=== PATIENT | female | born 1970 | race Two or more races ===

== ENCOUNTER 2024-08-11 10:09 | Emergency (ER) | payer BC, OTHER, SELFPAY ==
[2024-08-11 10:09] VITALS: BMI 32.9
[2024-08-11 10:15] VITALS: BP 128/85; PULSE 100; RESP 19; TEMP 37.3; O2SAT 99
--- NOTE | 2024-08-11 10:30 | XR_ITS ---
Examination: CT abdomen and pelvis without contrast. Coronal 3-D reconstructions. Sagittal 2-D reconstructions. Date and time of exam:August 11, 2024 1338 hrs. Indications: Nausea vomiting fever today Comparison: April 20, 2022, history kidney stones CTDI: vol (mGy): 9.01 DLP: (mGycm): 445 Technique: Axial images of the abdomen have been obtained, 3 mm slice thickness Intravenous contrast material has not been administered. Low dose protocols were performed. One or more of the following dose reduction techniques were used; automated exposure control, adjustment of the mA and/or KV according to patient size, use of iterative reconstruction technique. Findings: No focal liver or splenic lesion No gallstones No pancreatic or adrenal mass Multiple right renal calculi Mild right hydronephrosis secondary to 16mm right ureterovesical junction calculus Aorta normal size No bowel obstruction No pericecal inflammatory change No pelvic mass No bladder mass or bladder calculi Impression: Mild right hydronephrosis secondary to 16mm right ureterovesical junction calculus
--- NOTE | 2024-08-11 10:31 | PD.EDRME ---
Rapid Medical Screening Exam RME Arrival date/time: 08/11/24 10:09 Chief Complaint: Abdominal Pain Time Seen by Provider: 08/11/24 10:19 Vital signs: Vital Signs Temperature 99.1 F 08/11/24 10:15 Pulse Rate 100 08/11/24 10:15 Respiratory Rate 19 08/11/24 10:15 Blood Pressure 128/85 H 08/11/24 10:15 Pulse Oximetry (%) 99 08/11/24 10:15 Oxygen Delivery Method Room Air 08/11/24 10:15 RME Narrative: Right flank pain, N/V x 2 days worsening this morning. No fever or urinary symptoms reported.
[2024-08-11 10:51] LABS: Basophils % (Auto) 0 % (0-2.5); Eosinophils % (Auto) 0 % (0-10); Hematocrit 36.5 % (36.0-46.0); Hemoglobin 12.4 g/dL (12.0-16.0); Immature Granulocytes % (Auto) 0 % (0-0); Immature Granulocytes Auto 0.07 Thou/mm3 (0.00-0.00); Lymphocytes # (Auto) 0.8 Thou/mm3 (1.0-4.8); Lymphocytes % (Auto) 5 % (10-50); Mean Corpuscular Hemoglobin 30.4 pg (25.0-35.0); Mean Corpuscular Volume 90 fL (80-100); Monocytes # (Auto) 0.4 Thou/mm3 (0.0-0.8); Monocytes % (Auto) 2 % (0-12); Neutrophils # (Auto) 16.2 Thou/mm3 (1.8-7.7); Neutrophils % (Auto) 93 % (37-80); Nucleated Red Blood Cell % 0 /100 WBC (0); Platelet Count 238 Thou/mm3 (140-440); RDW Standard Deviation 44.7 fL (36.4-46.3); Red Blood Count 4.08 Miln/mm3 (4.00-5.20); White Blood Count 17.5 Thou/mm3 (3.6-11.0)
[2024-08-11 11:13] LABS: Alanine Aminotransferase 20 U/L (10-49); Albumin, Serum 4.9 gm/dL (3.5-5.0); Alkaline Phosphatase 88 U/L (46-116); Anion Gap 6 (7-16); Aspartate Amino Transferase 19 U/L (0-34); BUN/Creatinine Ratio 16 Ratio (12-20); Bilirubin,Total 2.7 mg/dL (0.3-1.2); Blood Urea Nitrogen 24 mg/dL (9-23); Calcium 9.8 mg/dL (8.3-10.6); Calcium (Corrected) 9.8 mg/dL (8.5-10.1); Carbon Dioxide 26.6 mMol/L (20.0-31.0); Chloride 99 mMol/L (98-107); Creatinine (Component) 1.5 mg/dL (0.6-1.3); Estimated Creatinine Clearance 43.4 mL/min (>60); Globulin 2.5 gm/dL (2.3-3.5); Glucose 147 mg/dL (74-106); Lipase 29 U/L (12-53); Osmolality,Calculated 271 (275-295); Potassium 3.9 mMol/L (3.4-5.1); Sodium 132 mMol/L (136-145); Total Protein 7.4 gm/dL (5.7-8.2); eGFR 42 See Note
--- NOTE | 2024-08-11 11:16 | PD.EDABDPN ---
ED Abdominal Pain RME/HPI General Chief Complaint: Abdominal Pain Stated complaint: RIGHT FLANK PAIN SINCE LAST NIGHT Time seen by provider: 08/11/24 10:19 Arrival date/time: 08/11/24 10:09 RME / HPI RME / HPI narrative: 54-year-old female patient with no significant past medical history except for history of kidney stone in the past, came in for evaluation regarding right flank pain. Onset of symptoms since last night as sudden onset of right flank pain, described as crampy, severity 8 out of 10 associated with vomiting. Patient feels hot also. Denies any diarrhea denies any constipation denies any hematuria frequency or other complaints. No medication was taken prior to arrival. Patient was noted to have temperature of 102, sepsis alert was initiated right away. Related Data Previous Rx's ?Medication ?Instructions ?Recorded hydrocodone 5 mg-acetaminophen 325 1 tab PO BID PRN pain #10 tabs 04/20/22 mg tablet oxycodone 5 mg capsule 5 mg PO Q4H PRN pain #18 caps 04/20/22 promethazine 25 mg tablet 25 mg PO Q6H PRN nausea and 04/20/22 vomiting #14 tabs tamsulosin 0.4 mg capsule (Flomax) 0.4 mg PO QDAY #30 caps 04/20/22 Allergies Allergy/AdvReac Type Severity Reaction Status Date / Time No Known Allergies Allergy Verified 08/11/24 10:10 Review of Systems Review of Systems Narrative Review of Systems: Review of system reviewed and within normal limits except mentioned in HPI ED Exam Narrative Physical exam: VITAL SIGNS: Reviewed. GENERAL APPEARANCE: Alert and interactive, follows commands, no acute distress, HEAD AND FACE: Non-traumatic. ENT: PERRL, pink conjunctivitis, eyelid no trauma, Mucous membrane moist. NECK: Supple, nontender, no nuchal rigidity. CHEST: No tenderness, no crepitus, no paradoxical movement, no retractions. LUNGS: Clear, well ventilated, symmetric, no rales, no wheezing, no ronchi, no stridor, good breath sounds bilaterally. HEART: Regular rate, regular rhythm, no murmur, no gallops. ABDOMEN: Soft, positive bowel sounds, nondistended, no guarding, nontender, no rebound, no masses,+ right flank tenderness RECTAL: Deferred. GENITAL: Deferred. NEUROLOGICAL: Gross motor function intact sensory function intact, Appropriate for age. MUSCULOSKELETAL: low back nontender, full range of motion. EXTREMITIES: Nontender, full range of motion. SKIN: Color pink, dry, no rash, no lacerations, no abrasions, no contusions. LYMPHATICS: Deferred. Course Quality Measures none Orders Category Date Time Status Referral - Marine Technician Stat Cons 08/11/24 14:[address] abdomen pelvis wo con Stat Exams 08/11/24 10:30 Completed Blood Culture (Lab) Stat Lab 08/11/24 11:40 Received CBC Stat Lab 08/11/24 10:44 Completed CMP [Comprehensive Metabolic Panel] Stat Lab 08/11/24 10:44 Completed Lactate (Lactic Acid) Stat Lab 08/11/24 11:32 Completed Lactic Acid, 3 HR Stat Lab 08/11/24 15:10 Completed Lipase Stat Lab 08/11/24 10:44 Completed Procalcitonin Stat Lab 08/11/24 10:44 Completed UA [Urinalysis] Stat Lab 08/11/24 10:50 Completed Acetaminophen Tab [Tylenol ES Tab] Med 08/11/24 11:24 Discontinued 1,000 mg PO X1 ONE Ketorolac Inj [Toradol Inj] Med 08/11/24 10:30 Discontinued 30 mg IM X1 ONE Ondansetron Odt [Zofran Odt] Med 08/11/24 10:30 Discontinued 4 mg PO X1 ONE Piper/Tazo 3.375 gm [Zosyn] Med 08/11/24 14:33 Discontinued 3.375 gm in 50 ml IV X1 Sodium Chloride 0.9% 1000 ml [Ns] 1,000 ml Med 08/11/24 11:23 Discontinued IV 999 mls/hr cefTRIAXone/D5w 1gm IV premix [Rocephin/D5w 1gm IV Med 08/11/24 11:38 Discontinued premix] 50 ml IV X1 Vital Signs Vital signs: Vital Signs Temperature 99.1 F 08/11/24 10:15 Pulse Rate 100 08/11/24 10:15 Respiratory Rate 19 08/11/24 10:15 Blood Pressure 128/85 H 08/11/24 10:15 Pulse Oximetry (%) 99 08/11/24 10:15 Oxygen Delivery Method Room Air 08/11/24 10:15 Abdominal Pain MDM MDM Narrative MDM Narrative:: 54-year-old female patient with no significant past medical history except for history of kidney stone in the past, came in for evaluation regarding right flank pain. Onset of symptoms since last night as sudden onset of right flank pain, described as crampy, severity 8 out of 10 associated with vomiting. Patient feels hot also. Denies any diarrhea denies any constipation denies any hematuria frequency or other complaints. No medication was taken prior to arrival. Patient was noted to have temperature of 102, sepsis alert was initiated right away. Sepsis alert was initiated at 1135. Patient received Tylenol, ceftriaxone IV, IV fluids for hydration Patient received IV Zosyn also. Laboratory workup is significant for leukocytosis of 17.5 neutrophils of 16.2 sodium 132 anion gap of 6 creatinine 1.5 BUN of 24 total bili was also noted to be 2.7 Pro-Ashkan 4.82. Urinalysis no UTI CT scan of the abdomen and pelvis showed Mild right hydronephrosis secondary to 16mm right ureterovesical junction calculus Patient is to be transferred for urology due to 16 mm stone at the right ureterovesicular junction, right flank pain, and sepsis I am thinking patient is having acute pyelonephritis despite normal urinalysis. Patient was accepted to [facility] in [place], accepting neurologist Dr. Lanre Kellogg Plan of care discussed with the patient and accepted the transfer. Patient data External records reviewed:: None Clinical information provided by:: patient Social determinants that could affect healthcare access:: none Patient has the following chronic illnesses:: None How is presenting disease/condition affected by chronic disease/condition?: no chronic disease Evaluation data The following diagnostics were reviewed and interpreted by me:: lab results and radiology exam(s) Lab and/or radiology exams considered but not ordered:: None Interpretation Summary: Laboratory workup is significant for leukocytosis of 17.5 neutrophils of 16.2 sodium 132 anion gap of 6 creatinine 1.5 BUN of 24 total bili was also noted to be 2.7 Pro-Ashkan 4.82. Urinalysis no UTI CT scan of the abdomen and pelvis showed Mild right hydronephrosis secondary to 16mm right ureterovesical junction calculus Medications / Prescriptions Medications or Prescriptions considered but not ordered:: None Medication administrations:: Medication Administration History Discontinued Medications Acetaminophen (Acetaminophen 500 Mg Tablet) 1,000 mg PO X1 ONE Stop: 08/11/24 11:25 Last Admin: 08/11/24 11:40 Dose: 1,000 mg Documented By: PATEL Sodium Chloride (Ns) 1,000 mls @ 999 mls/hr IV .Q1H1M ONE Stop: 08/11/24 12:23 Last Infusion: 08/11/24 13:43 Dose: Infused Documented By: Admin: 08/11/24 11:40 Dose: 999 mls/hr Documented By: PATEL Ceftriaxone Sodium/Dextrose (Rocephin/D5w 1gm Iv Premix) 50 mls @ 100 mls/hr IV X1 ONE Stop: 08/11/24 12:07 Last Infusion: 08/11/24 13:42 Dose: Infused Documented By: Admin: 08/11/24 11:44 Dose: 100 mls/hr Documented By: PATEL Piperacillin/Tazobactam/Dextrose (Zosyn) 3.375 gm in 50 mls @ 100 mls/hr IV X1 ONE Stop: 08/11/24 15:02 Ketorolac Tromethamine (Ketorolac Inj 60 Mg/2 Ml Vial) 30 mg IM X1 ONE Stop: 08/11/24 10:31 Last Admin: 08/11/24 11:24 Dose: 30 mg Documented By: PATEL Ondansetron HCl (Ondansetron Odt 4 Mg Tabrap) 4 mg PO X1 ONE; Protocol Stop: 08/11/24 10:31 Last Admin: 08/11/24 11:24 Dose: 4 mg Documented By: PATEL Patient received ceftriaxone IV, IV fluids for hydration, Toradol, Zofran, and Tylenol patient was also given IV Zosyn Consultations Consultation(s) initiated? (list below): Yes Diagnosis Differential diagnosis abdominal pain: calculus of kidney and other (Acute pyelonephritis, sepsis, ureterolithiasis) Most likely diagnosis given after review of the tests above:: sepsis, ureterolithiasis Admission Indicated Admission indicated?: indicated Explain why admission is indicated or not indicated:: Patient transferred to higher level care Admission Request Was there a request for admission?: No Disposition Plan Disposition Plan: Transfer Discharge Plan Plan Patient Disposition: [facility] Facility Pt Being Transferred to: [facility] Service Needed for Transfer: Urology Prescriptions/Referrals Prescriptions/Med Rec: No Action oxycodone 5 mg capsule 5 mg PO Q4H MDD 6 PRN (Reason: pain) Qty: 18 0RF tamsulosin [Flomax] 0.4 mg capsule 0.4 mg PO QDAY Qty: 30 0RF promethazine 25 mg tablet 25 mg PO Q6H PRN (Reason: nausea and vomiting) Qty: 14 0RF hydrocodone-acetaminophen 5-325 mg tablet 1 tab PO BID MDD 10 PRN (Reason: pain) Qty: 10 0RF Referrals: Baldomero Ramirez [Primary Care Provider] - In 1 week Problem List Clinical Impression: Sepsis, Ureterolithiasis Patient/Caregiver Discharge Instructions Print Language: Faroese Stand Alone Forms: [facility] Award Info., Patient Portal Info Letter
[2024-08-11] MEDS: KETOROLAC INJ 60 MG/2 ML VIAL 30 MG IM (11:24)
[2024-08-11] MEDS: ONDANSETRON ODT 4 MG TABRAP PO (11:24)
[2024-08-11 11:31] VITALS: BP 130/77; PULSE 97; RESP 18; TEMP 38.9; O2SAT 96
[2024-08-11 11:40] VITALS: TEMP 38.8
[2024-08-11] MEDS: SODIUM CHLORIDE 0.9% 1000 ML 1,000 ML 999 ML IV (11:40)
[2024-08-11] MEDS: ACETAMINOPHEN 500 MG TABLET 1000 MG PO (11:40)
[2024-08-11] MEDS: cefTRIAXone/D5w 1gm IV premix 50 ML IV (11:44)
[2024-08-11 12:02] LABS: Lactate (Lactic Acid) 2.7 mMol/L (0.4-2.0)
[2024-08-11 12:06] LABS: Collection Type, Urine Clean Catch
[2024-08-11 12:24] LABS: Bilirubin,Urine Negative (Negative); Blood,Urine 1+ (Negative); Clarity,Urine Clear (Clear/Hazy); Color,Urine Lt-Yellow (Lt Yel-Yel); Glucose, Urine Negative (Negative); Ketones,Urine Negative (Negative); Leukocyte Esterase,Urine Negative (Negative); Nitrite,Urine Negative (Negative); Protein,Urine Negative (Neg - Trace); RBC,Urine 5 /hpf (0-3); Specific Gravity,Urine 1.023 (1.001-1.035); Squamous Epithelial Cell,Urine 4 /hpf (0-5); Uric Acid Crystals,Urine 1+; Urobilinogen,Urine Negative mg/dL (0.0-1.0); WBC,Urine 3 /hpf (0-5)
[2024-08-11 12:44] LABS: Procalcitonin 4.82 ng/ml (0.0-0.49)
--- NOTE | 2024-08-11 14:43 | PC.CM ---
Addendum entered by Albert Nicole RN 08/11/24 15:53: 1553 called [facility], spoke to Summer and informed miner pick time is 1800. Addendum entered by Albert Nicole RN 08/11/24 15:46: 1545 sent paperwork to [facility] through [employer]. Called JORDAN, spoke to [facility] and setup the transport. 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 1538 transfer packet is complete with CD inside including all signatures. Transfer packet kept with pt chart, notified charge nurse and number to call for report is on tracker. Addendum entered by Albert Nicole RN 08/11/24 15:12: 1511 received call from Sandra at [facility]. Pt is accepted for ED to ED transfer. Accepted by Dr. Lanre Duong. Report can be called at [phone]. Addendum entered by Albert Nicole RN 08/11/24 14:55: 1455 Called [facility], spoke to [facility] and initiated the transfer request. She wants to speak to Shalonda. Conference call connected. Original Note: 1453 Called [facility], spoke to Nirali to initiate the transfer request. Transfer request is declined due to no urology services available today. 1443 clinicals sent to [facility] and [facility]. 1431 received call from Shalonda MIRANDA that pt needs to be transferred for 16mm right ureterovesical junction calculus needs urology services.
[2024-08-11 14:47] VITALS: BP 107/59; PULSE 110; RESP 18; TEMP 37.1; O2SAT 96
[2024-08-11 14:59] LABS: Reflex Lactate? Y
[2024-08-11 15:28] LABS: Lactic Acid, 3 HR 3.1 mMol/L (0.4-2.0)
[2024-08-11] MEDS: PIPER/TAZO 3.375 GM 3.375 GM/50 ML BAG IV (15:36)
[2024-08-11 16:23] VITALS: BP 100/58; PULSE 107; RESP 18; TEMP 37.1; O2SAT 100
--- NOTE | 2024-08-11 17:14 | PC.NURSE ---
Report given to Racehll BOURNE at [facility] for patient transfer with ETA of 1.5hrs.
== END 2024-08-11 17:00 | disposition short-term general hospital (02) ==
PROVIDERS: Nurse Practitioner Family; Physician Assistant; Emergency Provider Emergency Medicine; PCP Physician Assistant
DX: A41.9 Sepsis, unspecified organism (principal); N13.2 Hydronephrosis with renal and ureteral calculous obstruction; Z75.1 Person awaiting admission to adequate facility elsewhere
CPT/HCPCS: 36415; 74176; 80053; 81001; 83605; 83690; 84145; 85025; 87040; 87077; 87186; 96361; 96365; 96372; 99284; J0696; J1885; J2543; J7030; Q0162; A9270

== ENCOUNTER → 2024-08-30 | Outpatient (CLI) | payer BC, OTHER, SELFPAY ==
--- NOTE | 2024-08-30 13:22 | XR_ITS ---
Examination: Abdomen AP single view Technique: AP portable supine abdomen, single view Exam date and time: August 30, 2024 1329 hours INDICATIONS: History right kidney stone, 60 mm right ureterovesical junction calculus on CT stone study August 11, 2024 FINDINGS: Right ureteral stent satisfactory position Faint 14 mm calcific density adjacent to the distal portion of the ureteral stent IMPRESSION: 14 mm distal ureteral calculus
== END | disposition home or self-care (01) ==
LOC: CDIM 12:45
PROVIDERS: PCP Physician Assistant; Referring Provider Surgery; Visit Provider Surgery
DX: N20.1 Calculus of ureter (principal)
CPT/HCPCS: 74018

== ENCOUNTER 2024-09-07 10:00 | Day surgery (SDC) | payer BC, OTHER, SELFPAY ==
--- NOTE | 2024-09-06 11:34 | EKG_ITS ---
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
[2024-09-06 11:45] VITALS: BMI 31.1
[2024-09-06 12:09] LABS: Collection Type, Urine Clean Catch
--- NOTE | 2024-09-06 12:47 | ESHP_ITS ---
RE: CEZAR PINON : 1970 DATE OF ADMISSION: 09/07/2024 HISTORY OF PRESENT ILLNESS: The patient is a 54-year-old female with a history of right-sided kidney stone. She had a right ureteral stent placed in [place]. She still has a stone. She is now scheduled to have an ESWL for right renal and ureteral stone. The patient had a history of stones in the past. PAST SURGICAL HISTORY: Included cyst removed from pancreas at [facility]. She has a right kidney stone surgery before and had abdominoplasty. SOCIAL HISTORY: She has four children. ALLERGIES: NONE KNOWN. PAST MEDICAL HISTORY: She has no history of diabetes mellitus. She has history of hypertension. HOME MEDICATIONS: She takes, 1. Lisinopril. 2. Hydrochlorothiazide. 3. Statin medication. PHYSICAL EXAMINATION: HEENT: Normal. NECK: Supple. LUNGS: Clear. CARDIOVASCULAR: Heart sounds are normal. ABDOMEN: Soft without any organomegaly. No guarding. No rigidity. EXTREMITIES: Normal. The patient has a long transverse scar of abdominoplasty in her lower abdomen. LABORATORY DATA: KUB film of the abdomen has revealed a right distal ureteral stone, 6 mm in size. IMPRESSION: Right ureteral stone. The patient does have a right ureteral stent in place. PLAN: Extracorporeal shock wave lithotripsy for right renal stone. Planned procedure risks and complications have been discussed with the patient. The patient understood them and agreed to proceed. DT: 11:47:53 TT: 12:46:00 Ref: [id number] - TID: [id number]
[2024-09-06 13:10] LABS: Basophils % (Auto) 0 % (0-2.5); Eosinophils # (Auto) 0.8 Thou/mm3 (0.0-0.5); Eosinophils % (Auto) 9 % (0-10); Hematocrit 37.8 % (36.0-46.0); Hemoglobin 12.7 g/dL (12.0-16.0); Immature Granulocytes % (Auto) 0 % (0-0); Immature Granulocytes Auto 0.02 Thou/mm3 (0.00-0.00); Lymphocytes # (Auto) 2.8 Thou/mm3 (1.0-4.8); Lymphocytes % (Auto) 32 % (10-50); Mean Corpuscular HGB Conc 33.6 g/dl (31.0-37.0); Mean Corpuscular Hemoglobin 29.8 pg (25.0-35.0); Mean Corpuscular Volume 89 fL (80-100); Monocytes # (Auto) 0.7 Thou/mm3 (0.0-0.8); Monocytes % (Auto) 8 % (0-12); Neutrophils # (Auto) 4.5 Thou/mm3 (1.8-7.7); Neutrophils % (Auto) 51 % (37-80); Nucleated Red Blood Cell % 0 /100 WBC (0); Platelet Count 304 Thou/mm3 (140-440); RDW Standard Deviation 44.5 fL (36.4-46.3); Red Blood Count 4.26 Miln/mm3 (4.00-5.20); White Blood Count 8.9 Thou/mm3 (3.6-11.0)
[2024-09-06 13:26] LABS: Alanine Aminotransferase 36 U/L (10-49); Albumin, Serum 5.1 gm/dL (3.5-5.0); Albumin/Globulin Ratio 1.6 (1.2-2.2); Alkaline Phosphatase 109 U/L (46-116); Anion Gap 7 (7-16); Aspartate Amino Transferase 27 U/L (0-34); BUN/Creatinine Ratio 23 Ratio (12-20); Bilirubin,Total 1.9 mg/dL (0.3-1.2); Blood Urea Nitrogen 21 mg/dL (9-23); Calcium 10.6 mg/dL (8.3-10.6); Calcium (Corrected) 10.6 mg/dL (8.5-10.1); Carbon Dioxide 28.9 mMol/L (20.0-31.0); Chloride 103 mMol/L (98-107); Creatinine (Component) 0.9 mg/dL (0.6-1.3); Estimated Creatinine Clearance 70.3 mL/min (>60); Globulin 3.1 gm/dL (2.3-3.5); Glucose 116 mg/dL (74-106); Osmolality,Calculated 281 (275-295); Potassium 4.7 mMol/L (3.4-5.1); Sodium 139 mMol/L (136-145); Total Protein 8.2 gm/dL (5.7-8.2); eGFR > 60 See Note
[2024-09-06 13:59] LABS: Bacteria,Urine 1+; Bilirubin,Urine Negative (Negative); Blood,Urine 3+ (Negative); Color,Urine Yellow (Lt Yel-Yel); Glucose, Urine Negative (Negative); Hyaline Casts,Urine < 1 /hpf (0-1); Ketones,Urine Negative (Negative); Leukocyte Esterase,Urine Positive (Negative); Nitrite,Urine Negative (Negative); PH,Urine 5.5 (5.0-7.0); Protein,Urine 2+ (Neg - Trace); RBC,Urine 254 /hpf (0-3); Specific Gravity,Urine 1.019 (1.001-1.035); Squamous Epithelial Cell,Urine 3 /hpf (0-5); Urobilinogen,Urine Negative mg/dL (0.0-1.0); WBC,Urine 25 /hpf (0-5)
[2024-09-06 14:02] LABS: Clarity,Urine Hazy (Clear/Hazy)
[2024-09-07] VITALS (7 sets, daily range): BP systolic 110–133; BP diastolic 67–79; PULSE 82–90; RESP 12–20; TEMP 36.3–36.9; O2SAT 95–100; BMI 31.6
--- NOTE | 2024-09-07 06:00 | XR_ITS ---
Examination: Abdomen AP single view Technique: AP portable supine abdomen, single view Exam date and time: September 07, 2024 1052 hours Comparison August 30, 2024 INDICATIONS: Preop, history kidney stones, history 16mm right ureterovesical calculus on CT examination August 11, 2024 FINDINGS: Right ureteral stent satisfactory position The ureteral calculus is not clearly visualized on this study IMPRESSION: Consider coned AP film of the pelvis to better assess for distal ureteral calculus There is a 12 mm calculus lower pole right kidney
[2024-09-07] MEDS: RINGERS LACTATED 1000 ML 1,000 ML 20 ML IV (10:57)
--- NOTE | 2024-09-07 12:49 | SUR.PHASEI ---
pt arrived to PACU via gurney drowsy but arouses to verbal stimuli, breathing unlabored, report from Kaylan BOURNE and Tone ALDRIDGE
--- NOTE | 2024-09-07 13:45 | SUR.PHASEII ---
pt awake, alert, able to follow commands, breathing unlabored, discharge instructions given with spouse present, all questions answered, pt discharged via wheelchair with all belongings and copies of discharge paperwork.
--- NOTE | 2024-09-07 19:09 | ESOP_ITS ---
RE: CEZAR PINON : 1970 DATE OF OPERATION: 09/07/2024 PREOPERATIVE DIAGNOSIS: Right renal stone, 1.5 cm lower pole. The patient already has a right ureteral stent in place. POSTOPERATIVE DIAGNOSIS: Right renal stone 1.5 cm lower pole. The patient already has a right ureteral stent in place. PROCEDURE PERFORMED: ESWL for right renal stone. ANESTHESIA: General. INDICATION: The patient is a 54-year-old female with history of a right renal stone. She has a 1.5 cm stone in the right lower pole of the kidney. She already has a right ureteral stent placed in [place]. She is now scheduled to have ESWL for right renal stone. Planned procedure, risks and complications have been discussed with the patient. The patient understood them and agreed to proceed. DESCRIPTION OF PROCEDURE: After the patient was brought to the operating table under adequate general anesthesia, she was placed on Dornier Delta III lithotripsy machine. The patient has a right renal stone that was treated with 2500 shocks power level 8. After that was treated, the entire right ureter was inspected under fluoroscopic control and there were no distal ureteral stone. The patient had some x-rays taken few weeks ago, which showed possible right distal ureteral stone, but today's fluoroscopy did not reveal any right distal ureteral stone. Procedure was terminated. The patient tolerated the entire procedure well and left the room in good condition. DT: 12:46:40 TT: 19:07:00 Ref: [id number] - TID: [id number]
== END 2024-09-07 13:45 | disposition home or self-care (01) ==
PROVIDERS: PCP Physician Assistant; Referring Provider Surgery; Visit Provider Surgery
PROC: (CPT 50590; principal; 2024-09-07 12:00)
DX: N20.2 Calculus of kidney with calculus of ureter (principal); I10 Essential (primary) hypertension; Z01.810 Encounter for preprocedural cardiovascular examination
CPT/HCPCS: 50590; 36415; 74018; 80048; 80053; 81001; 85025; 87086; 93005; A4217; J0694; J2250; J2704; J3010; J3490; J7120; J1596

== ENCOUNTER → 2024-09-17 | Outpatient (CLI) | payer BC, OTHER, SELFPAY ==
--- NOTE | 2024-09-17 15:01 | XR_ITS ---
Examination: Abdomen AP single view Technique: AP portable supine abdomen, single view Exam date and time: September 17, 2024 1537 hours INDICATIONS: History right ureteral stent placement, history kidney stones FINDINGS: Right ureteral stent satisfactory position No renal or ureteral calculi noted on this study IMPRESSION: Right ureteral stent satisfactory position
== END | disposition home or self-care (01) ==
LOC: CDIM 14:49
PROVIDERS: PCP Family Medicine; Referring Provider Surgery; Visit Provider Surgery
DX: N20.0 Calculus of kidney (principal)
CPT/HCPCS: 74018

== ENCOUNTER 2024-10-05 11:00 | Day surgery (SDC) | payer BC, OTHER, SELFPAY ==
[2024-10-04 08:46] VITALS: BMI 32.6
[2024-10-04 09:14] LABS: Collection Type, Urine Clean Catch
[2024-10-04 10:08] LABS: Basophils % (Auto) 1 % (0-2.5); Eosinophils # (Auto) 0.8 Thou/mm3 (0.0-0.5); Eosinophils % (Auto) 11 % (0-10); Hematocrit 35.6 % (36.0-46.0); Hemoglobin 12.1 g/dL (12.0-16.0); Immature Granulocytes % (Auto) 0 % (0-0); Immature Granulocytes Auto 0.02 Thou/mm3 (0.00-0.00); Lymphocytes # (Auto) 2.8 Thou/mm3 (1.0-4.8); Lymphocytes % (Auto) 36 % (10-50); Mean Corpuscular Hemoglobin 29.8 pg (25.0-35.0); Mean Corpuscular Volume 88 fL (80-100); Monocytes # (Auto) 0.7 Thou/mm3 (0.0-0.8); Monocytes % (Auto) 9 % (0-12); Neutrophils # (Auto) 3.4 Thou/mm3 (1.8-7.7); Neutrophils % (Auto) 43 % (37-80); Nucleated Red Blood Cell % 0 /100 WBC (0); Platelet Count 284 Thou/mm3 (140-440); RDW Standard Deviation 41.4 fL (36.4-46.3); Red Blood Count 4.06 Miln/mm3 (4.00-5.20); White Blood Count 7.7 Thou/mm3 (3.6-11.0)
[2024-10-04 10:32] LABS: Alanine Aminotransferase 22 U/L (10-49); Albumin, Serum 4.6 gm/dL (3.5-5.0); Albumin/Globulin Ratio 1.6 (1.2-2.2); Alkaline Phosphatase 111 U/L (46-116); Anion Gap 8 (7-16); Aspartate Amino Transferase 17 U/L (0-34); BUN/Creatinine Ratio 25 Ratio (12-20); Bilirubin,Total 1.4 mg/dL (0.3-1.2); Blood Urea Nitrogen 20 mg/dL (9-23); Calcium 9.9 mg/dL (8.3-10.6); Calcium (Corrected) 9.9 mg/dL (8.5-10.1); Carbon Dioxide 28.4 mMol/L (20.0-31.0); Chloride 104 mMol/L (98-107); Creatinine (Component) 0.8 mg/dL (0.6-1.3); Estimated Creatinine Clearance 80.2 mL/min (>60); Globulin 2.9 gm/dL (2.3-3.5); Glucose 118 mg/dL (74-106); Osmolality,Calculated 283 (275-295); Potassium 4.8 mMol/L (3.4-5.1); Sodium 140 mMol/L (136-145); Total Protein 7.5 gm/dL (5.7-8.2); eGFR > 60 See Note
[2024-10-04 10:38] LABS: Bacteria,Urine 2+; Bilirubin,Urine Negative (Negative); Blood,Urine 3+ (Negative); Color,Urine Yellow (Lt Yel-Yel); Glucose, Urine Negative (Negative); Ketones,Urine Negative (Negative); Leukocyte Esterase,Urine Positive (Negative); Nitrite,Urine Negative (Negative); PH,Urine 5.5 (5.0-7.0); Protein,Urine 2+ (Neg - Trace); RBC,Urine 199 /hpf (0-3); Specific Gravity,Urine 1.018 (1.001-1.035); Squamous Epithelial Cell,Urine 3 /hpf (0-5); Urobilinogen,Urine Negative mg/dL (0.0-1.0); WBC,Urine 256 /hpf (0-5)
[2024-10-04 11:03] LABS: Clarity,Urine Turbid (Clear/Hazy)
--- NOTE | 2024-10-04 13:41 | ESHP_ITS ---
RE: CEZAR PINON : 1970 DATE OF ADMISSION: 10/05/2024 HISTORY OF PRESENT ILLNESS: The patient is a 54-year-old female with a right renal stone. She had a large 1.5 cm stone in the lower pole of the right kidney. She has a residual stone. She is scheduled to have repeat right ESWL done for remaining of the right renal stone. The patient had a right ureteral stent placed in [place]. There is a remaining right renal stone. PAST SURGICAL HISTORY: Included cysts from the pancreas removed at [place]. She had an abdominoplasty done in [place]. SOCIAL HISTORY: She has 4 children. PAST MEDICAL HISTORY: No history of diabetes mellitus. She does have a history of hypertension. HOME MEDICATIONS: She takes; 1. Lisinopril. 2. Hydrochlorothiazide. 3. She also takes statin medication. ALLERGIES: NONE KNOWN. PHYSICAL EXAMINATION: HEENT: Normal. NECK: Supple. LUNGS: Clear. CARDIOVASCULAR: Heart sounds are normal. ABDOMEN: Soft without any organomegaly. No guarding. No rigidity. EXTREMITIES: Normal. IMPRESSION: Right residual stone. She had a 1.5 cm stone in the right lower pole. PLAN: ESWL for remaining right renal stone. Planned procedure, risks, and complications have been discussed with the patient. The patient understood them and agreed to proceed. DT: 12:05:12 TT: 13:40:00 Ref: [id number] - TID: [id number]
[2024-10-05] VITALS (7 sets, daily range): BP systolic 105–129; BP diastolic 64–80; PULSE 67–83; RESP 12–18; TEMP 36.2–36.6; O2SAT 96–100; BMI 32.1
--- NOTE | 2024-10-05 06:00 | XR_ITS ---
Examination: Abdomen AP single view Technique: AP portable supine abdomen, single view Exam date and time: October 05, 2024 1144 hours INDICATIONS: Preop, lithotripsy, kidney stones FINDINGS: Right ureteral stent satisfactory position 27 mm calculus lower pole calyces IMPRESSION: 27 mm calculus lower pole calyces
--- NOTE | 2024-10-05 14:11 | SUR.PHASEI ---
pt received from OR in recovery bay 7. pt asleep but responds to voice, breathing unlabored on oxymask 8l. v/s stable. report received from Myra JOHNSON and Kenny BOURNE.
--- NOTE | 2024-10-05 14:35 | SUR.PHASEI ---
pt able to tolerate oral fluids without difficulty swallowing or nausea/vomiting.
--- NOTE | 2024-10-05 15:13 | SUR.PHASEII ---
pt awake and alert, breathing unlabored on room air. v/s stable. pt able to ambulate to wheelchair with steady gait. d/c instructions given with Gino in room, all questions answered. pt d/c via wheelchair with all belongings.
--- NOTE | 2024-10-05 22:01 | ESOP_ITS ---
RE: CEZAR PINON : 1970 DATE OF OPERATION: 10/05/2024 PREOPERATIVE DIAGNOSIS: Right lower pole renal stone. The patient already has a right ureteral stent in place. POSTOPERATIVE DIAGNOSIS: Right lower pole renal stone. The patient already has a right ureteral stent in place. PROCEDURE PERFORMED: ESWL for right lower pole renal stone. ANESTHESIA: General endotracheal. INDICATION: The patient is a 54-year-old female with right renal stone. She has a 2.7 cm stone in the lower pole of the right kidney. She already has a right ureteral stent in place. She already had ESWL done once before. She is now scheduled to have repeat ESWL. Plan, procedure, risks and complications have been discussed with the patient. The patient understood them and agreed to proceed. It should be noted that the patient did have a CT scan of the abdomen and pelvis done in 07/2024, which revealed a large right ureteropelvic junction stone and lower pole right renal stone. The patient was then sent to [place] and had a right ureteral stent placed. These stones are hard to see on some of the x-rays like KUBs. The patient had lithotripsy done once before. Today's x-ray revealed a faintly visualized right large lower pole renal stone 27 mm in size. DESCRIPTION OF PROCEDURE: After the patient was brought to the operating table under adequate general anesthesia, the patient was placed on Dornier Delta III lithotripsy machine. A 2500 shocks were given up to power level 8. The patient tolerated the entire procedure well and left the room in good condition. The patient's urinary pH is about 5 to 5.5. The patient does have a history of urinary calculi in the past in 2021. DT: 14:09:15 TT: 21:59:00 Ref: [id number] - TID: [id number]
== END 2024-10-05 15:13 | disposition home or self-care (01) ==
PROVIDERS: Anesthesiology; PCP Physician Assistant; Referring Provider Surgery; Visit Provider Surgery
PROC: (CPT 50590; principal; 2024-10-05 13:00)
DX: N20.2 Calculus of kidney with calculus of ureter (principal); I10 Essential (primary) hypertension
CPT/HCPCS: 50590; 36415; 74018; 80053; 81001; 84550; 85025; 87086; A4217; J0131; J0694; J1100; J2250; J2405; J2704; J3010; J3490

== ENCOUNTER → 2024-10-23 | Outpatient (CLI) | payer BC, OTHER, SELFPAY ==
--- NOTE | 2024-10-23 14:18 | XR_ITS ---
Examination: Abdomen AP single view Technique: AP portable supine abdomen, single view Exam date and time: October 23, 2024 and 5008 hours Indications: History kidney stone stent placement October 05, 2024 Findings: Right ureteral stent satisfactory position No renal calculi or ureteral calculi noted Impression: Right ureteral stent satisfactory position
== END | disposition home or self-care (01) ==
LOC: CDIM 14:12
PROVIDERS: PCP Physician Assistant; Referring Provider Surgery; Visit Provider Surgery
DX: N20.0 Calculus of kidney (principal)
CPT/HCPCS: 74018

== ENCOUNTER → 2024-11-08 | Outpatient (CLI) | payer BC, OTHER, SELFPAY ==
[2024-11-15 17:48] LABS: Stone Analysis Source NOT GIVEN
[2024-11-16 06:32] LABS: Stone Analysis Weight 0.292 g
== END | disposition home or self-care (01) ==
LOC: SLDO 11:35
PROVIDERS: Referring Provider Surgery; Visit Provider Surgery
DX: N20.0 Calculus of kidney (principal)
CPT/HCPCS: 82365

== ENCOUNTER 2024-12-17 02:55 | Emergency (ER) | payer BC, OTHER, SELFPAY ==
[2024-12-17 02:56] VITALS: BMI 32.0
[2024-12-17 03:14] VITALS: BP 144/85; PULSE 85; RESP 18; TEMP 36.6; O2SAT 97
--- NOTE | 2024-12-17 03:23 | PD.EDRME ---
Rapid Medical Screening Exam RME Arrival date/time: 12/17/24 02:55 54 yo f present to ED for c/o of flank pain, hx of kidney stone I have greeted and performed a focused initial assessment of this patient. A comprehensive ED assessment and evaluation of the patient, analysis of all test results, and completion of the medical decision making process will be conducted by additional ED providers. Chief Complaint: Abdominal Pain Time Seen by Provider: 12/17/24 03:03 Vital signs: Vital Signs Temperature 97.9 F 12/17/24 03:14 Pulse Rate 85 12/17/24 03:14 Respiratory Rate 18 12/17/24 03:14 Blood Pressure 144/85 H 12/17/24 03:14 Pulse Oximetry (%) 97 12/17/24 03:14 Oxygen Delivery Method Room Air 12/17/24 03:14
--- NOTE | 2024-12-17 03:49 | XR_ITS ---
Examination: CT abdomen and pelvis without contrast. Coronal 3-D reconstructions. Sagittal 2-D reconstructions. Date and time of exam:December 17, 2024 at 0454 hrs. Indications: Right-sided flank pain beginning 6 hours ago CTDI: vol (mGy): 9.09 DLP: (mGycm): 478 Technique: Axial images of the abdomen have been obtained, 3 mm slice thickness Intravenous contrast material has not been administered. Low dose protocols were performed. One or more of the following dose reduction techniques were used; automated exposure control, adjustment of the mA and/or KV according to patient size, use of iterative reconstruction technique. Findings: No focal liver or splenic lesions No gallstones No pancreatic mass Aorta normal size Mild right hydronephrosis secondary to 8 mm distal right ureteral calculus as well as 9 mm calculus at the right ureterovesical junction Multiple right renal calculi, the largest 7 mm Severely scarred left kidney No bowel obstruction Mild urinary bladder wall thickening Impression: Mild right hydronephrosis, 8 mm distal right ureteral calculus, 9 mm right ureterovesical junction calculus
--- NOTE | 2024-12-17 03:49 | XR_ITS ---
Examination: Abdomen sonogram, Limited Date and time of exam: December 17, 2024 0513 hrs. Indications: Right upper abdominal pain flank pain beginning 2 days ago Technique: Real-time crandall scale transabdominal sonographic images of the upper abdomen obtained. Findings: Normal gallbladder Normal common bile duct 0.46 cm Pancreatic head 3.0 cm Liver 18.4 cm smooth contour no focal liver lesions Normal hepatopedal portal venous flow Patent IVC Impression: Normal gallbladder Mild to moderate hepatomegaly no focal liver lesions
[2024-12-17] MEDS: KETOROLAC INJ 60 MG/2 ML VIAL IM (04:02)
[2024-12-17] MEDS: ONDANSETRON ODT 4 MG TABRAP PO (04:02)
[2024-12-17] MEDS: ACETAMINOPHEN w/COD 300-30 TABLET 2 TAB PO (04:04)
--- NOTE | 2024-12-17 04:06 | PD.EDABDPN ---
ED Abdominal Pain RME/HPI General Chief Complaint: Abdominal Pain Stated complaint: RIGHT FLANK PAIN Time seen by provider: 12/17/24 03:03 Arrival date/time: 12/17/24 02:55 RME / HPI RME / HPI narrative: 12/17/24 02:55 54 yo f present to ED for c/o of flank pain, hx of kidney stone I have greeted and performed a focused initial assessment of this patient. A comprehensive ED assessment and evaluation of the patient, analysis of all test results, and completion of the medical decision making process will be conducted by additional ED providers. This section includes all my notes and documentations, including HPI, PE, and ED course. Warren Torrez MD HPI: 54 y/o female with Hx of Hypercholesterolemia, Hypertension, Varicose Veins, Obesity, Kidney Stones, Arthritis, Blood Transfusions and SHx of Abdominal Surgery (cyst removal from pancreas, Tummy tuck) presents to ED c/o sharp right-sided abdominal, vomiting, and nausea x approximately 2 hours. Patent had an 11cm kidney stone removed approximately 3 months ago. No other complaints. ROS: All negative except as documented in HPI. Physical Exam: General: Alert and oriented. No obvious pain. Eyes: Conjunctivae and lids clear. ENT: No nasal congestion. Neck: Supple. Heart: RRR. Lungs: No respiratory distress. Good air movement. No rhonchi, wheezing, rales. Abdomen: Soft and nontender. Normal bowel sounds. No distension. No rebound or guarding. Back: No CVA tenderness. Skin: Warm and dry. Neuro: Alert and oriented X 3. I ordered Zofran ODT 4 mg, Toradol 60 mg IM, two Tylenol #3, and diagnostic tests. Room in ED not available currently. At 6 AM on 12/17/2024, the care of the patient was transferred to Dr. Mohr. Warren Torrez MD Related Data Home Medications ?Medication ?Instructions ?Recorded ?Confirmed atorvastatin 20 mg tablet 20 mg PO QDAY 09/06/24 10/05/24 cyclobenzaprine 10 mg tablet 10 mg PO HS PRN muscle spasm 09/06/24 10/05/24 lisinopril 20 1 tab PO QDAY 09/06/24 10/05/24 mg-hydrochlorothiazide 12.5 mg tablet Previous Rx's ?Medication ?Instructions ?Recorded ciprofloxacin HCl 500 mg tablet 500 mg PO BID #14 tabs 10/05/24 (Cipro) hydrocodone 5 mg-acetaminophen 325 1 tab PO Q6H PRN pain #20 tabs 10/05/24 mg tablet Allergies Allergy/AdvReac Type Severity Reaction Status Date / Time No Known Allergies Allergy Verified 12/17/24 02:57 Past Medical History Past Medical History CARDIAC: Positive Cardiac Disorders, Hypercholesterolemia, Hypertension and Varicose Veins GASTROINTESTINAL: Positive Gastrointestinal Disorders and Obesity GENITOURINARY: Positive Genitourinary Disorders and Kidney Stones REPRODUCTIVE: Positive Previous Pregnancies (4) MUSCULOSKELETAL: Positive Musculoskeletal Disorders and Arthritis OTHER HISTORY: Positive Hospitalization (kidney stones), Blood Transfusions and Chicken Pox Family History FAMILY HISTORY: Positive Family Cardiac Disorders and Family Surgery Surgical History SURGICAL: Positive Ear Surgery (right does not remember the name of procedure), Abdominal Surgery (cyst removal from pancreas in [place], [place]) and Arthroscopy (right knee) ED Exam Narrative Physical exam: Refer to HPI above. Course Quality Measures none Orders Category Date Time Status CT abdomen pelvis wo con Stat Exams 12/17/24 03:49 Ordered US gall bladder Stat Exams 12/17/24 03:49 Ordered CBC Stat Lab 12/17/24 03:49 Ordered CMP [Comprehensive Metabolic Panel] Stat Lab 12/17/24 03:49 Ordered Magnesium Stat Lab 12/17/24 03:49 Ordered UA, C/S IF [Urinalysis, C/S if Indicated] Stat Lab 12/17/24 03:50 Ordered ACETAMINOPHEN w/COD 300-30 [Tylenol w/Cod #3] Med 12/17/24 03:48 Discontinued 2 tab PO X1 ONE Ketorolac Inj [Toradol Inj] Med 12/17/24 03:21 Discontinued 30 mg IM X1 ONE Ketorolac Inj [Toradol Inj] Med 12/17/24 03:48 Discontinued 60 mg IM X1 ONE Ondansetron Odt [Zofran Odt] Med 12/17/24 03:21 Discontinued 4 mg PO X1 ONE Ondansetron Odt [Zofran Odt] Med 12/17/24 03:48 Discontinued 4 mg PO X1 ONE Vital Signs Vital signs: Vital Signs Temperature 97.9 F 12/17/24 03:14 Pulse Rate 85 12/17/24 03:14 Respiratory Rate 18 12/17/24 03:14 Blood Pressure 144/85 H 12/17/24 03:14 Pulse Oximetry (%) 97 12/17/24 03:14 Oxygen Delivery Method Room Air 12/17/24 03:14 Abdominal Pain MDM MDM Narrative MDM Narrative:: Scribe Attestation: I, Faina Cornejo, am scribing for and in the presence of Dr. Torrez. Provider Notation: Although this document has been carefully reviewed, there may still be some phonetic and other typographical errors. These errors are purely grammatical due to imperfections in the software program and should not be construed in any way to compromise the substance of the patient's medical care during this visit. 54 y/o female with Hx of Hypercholesterolemia, Hypertension, Varicose Veins, Obesity, Kidney Stones, Arthritis, Blood Transfusions and SHx of Ear Surgery (right does not remember the name of procedure), Abdominal Surgery (cyst removal from pancreas, Tummy tuck, and? Arthroscopy (right knee) presents to ED c/o sharp right-sided abdominal, vomiting, and nausea x approximately 2 hours. Patent had an 11cm kidney stone removed approximately 3 months ago. Patient data External records reviewed:: [facility] previous records Clinical information provided by:: patient Social determinants that could affect healthcare access:: none Patient has the following chronic illnesses:: Hypercholesterolemia, Hypertension, Varicose Veins, Obesity, Kidney Stones, Arthritis, Blood Transfusions How is presenting disease/condition affected by chronic disease/condition?: exacerbated by Evaluation data The following diagnostics were reviewed and interpreted by me:: lab results and radiology exam(s) Lab and/or radiology exams considered but not ordered:: None Interpretation Summary: Complete diagnostic test results are pending. Medications / Prescriptions Medications or Prescriptions considered but not ordered:: None Medication administrations:: Medication Administration History Discontinued Medications Acetaminophen/Codeine Phosphate (Acetaminophen W/Cod 300-30 Tablet) 2 tab PO X1 ONE Stop: 12/17/24 03:49 Last Admin: 12/17/24 04:04 Dose: 2 tab Documented By: CVL Ketorolac Tromethamine (Ketorolac Inj 60 Mg/2 Ml Vial) 30 mg IM X1 ONE Stop: 12/17/24 03:22 Last Admin: 12/17/24 03:33 Dose: Not Given Documented By: CVL Non-Admin Reason: Cancelled by Provider Ketorolac Tromethamine (Ketorolac Inj 60 Mg/2 Ml Vial) 60 mg IM X1 ONE Stop: 12/17/24 03:49 Last Admin: 12/17/24 04:02 Dose: 60 mg Documented By: CVL Ondansetron HCl (Ondansetron Odt 4 Mg Tabrap) 4 mg PO X1 ONE; Protocol Stop: 12/17/24 03:22 Last Admin: 12/17/24 03:33 Dose: Not Given Documented By: CVL Non-Admin Reason: Cancelled by Provider Ondansetron HCl (Ondansetron Odt 4 Mg Tabrap) 4 mg PO X1 ONE; Protocol Stop: 12/17/24 03:49 Last Admin: 12/17/24 04:02 Dose: 4 mg Documented By: CVL I ordered Tylenol w/ Codeine, Toradol, Zofran. Consultations Consultation(s) initiated? (list below): No Diagnosis Differential diagnosis abdominal pain: acute appendicitis, calculus of kidney, constipation, diverticulitis, endometriosis, gastroenteritis, pancreatitis and small bowel obstruction Most likely diagnosis given after review of the tests above:: Complete diagnostic test results are pending. Admission Indicated Admission indicated?: not indicated Explain why admission is indicated or not indicated:: Complete diagnostic test results are pending. Admission Request Was there a request for admission?: No Disposition Plan Disposition Plan: other (specify) (Care of the patient was transferred to Dr. Mohr. ) Discharge Plan Prescriptions/Referrals Prescriptions/Med Rec: No Action cyclobenzaprine 10 mg Tablet 10 mg PO HS PRN (Reason: muscle spasm) atorvastatin 20 mg Tablet 20 mg PO QDAY lisinopril-hydrochlorothiazide 20-12.5 mg Tablet 1 tab PO QDAY hydrocodone-acetaminophen 5-325 mg tablet 1 tab PO Q6H MDD 4 PRN (Reason: pain) Qty: 20 0RF ciprofloxacin HCl [Cipro] 500 mg tablet 500 mg PO BID Qty: 14 0RF Referrals: No Primary/Family,Physician [Primary Care Provider] - In 1 week Problem List Clinical Impression: Right flank pain Patient/Caregiver Discharge Instructions Print Language: Guinean
[2024-12-17 05:13] LABS: Basophils % (Auto) 0 % (0-2.5); Eosinophils # (Auto) 0.4 Thou/mm3 (0.0-0.5); Eosinophils % (Auto) 4 % (0-10); Hemoglobin 11.7 g/dL (12.0-16.0); Immature Granulocytes % (Auto) 0 % (0-0); Immature Granulocytes Auto 0.03 Thou/mm3 (0.00-0.00); Lymphocytes # (Auto) 1.5 Thou/mm3 (1.0-4.8); Lymphocytes % (Auto) 15 % (10-50); Mean Corpuscular HGB Conc 33.4 g/dl (31.0-37.0); Mean Corpuscular Hemoglobin 29.8 pg (25.0-35.0); Mean Corpuscular Volume 89 fL (80-100); Monocytes # (Auto) 0.9 Thou/mm3 (0.0-0.8); Monocytes % (Auto) 8 % (0-12); Neutrophils # (Auto) 7.5 Thou/mm3 (1.8-7.7); Neutrophils % (Auto) 73 % (37-80); Nucleated Red Blood Cell % 0 /100 WBC (0); Platelet Count 208 Thou/mm3 (140-440); RDW Standard Deviation 45.9 fL (36.4-46.3); Red Blood Count 3.92 Miln/mm3 (4.00-5.20); White Blood Count 10.3 Thou/mm3 (3.6-11.0)
--- NOTE | 2024-12-17 05:38 | PRELIM_ITS ---
CT scan of the abdomen and pelvis without intravenous contrast (axial sections with sagittal and coronal reformats). December 17, 2024 0454 hours Clinical History: ABD PAIN (R flank) Comparison: 08/11/24 Findings: The unenhanced liver, gallbladder, spleen, pancreas and right adrenal unremarkable per minimal calcifications suggested in the region of the left adrenal gland. There is a 7.6 mm obstructing distal right ureteral calculus with mild to moderate right hydroureteronephrosis. There is also a 9 mm calculu s at the right ureterovesical junction which may also be obstructing. Nonobstructive subcentimeter nephroliths are noted within the lower pole of the right kidney. There is severe right perinephric stranding as well as right periureteral stranding. There is atrophy and scarring of the left kidney. There are surgical clips suggested around the left kidney. Urinary bladder only contains small amount of fluid is not adequate is 9. Reproductive organs are unremarkable. There is underdistention of the stomach which limits evaluation. Appendix is normal. There is no free intraperitoneal air or fluid. There is no abdominal or pelvic lymphadenopathy. Bilateral breast prostheses are partially visualized. There is subsegmental atelectasis within the lung bases. There is no acute osseous abnormality. Impression: 7.6 mm obstructing distal right ureteral calculus with mild to moderate right hydroureteronephrosis and severe right perinephric as well as right periureteral stranding. 9 mm calculus at the right ureterovesical junction which also may be obstructing. Report Electronically Signed By: Pop Nowak 12/17/2024 5:37:34 AM [EST]
[2024-12-17 05:42] LABS: Alanine Aminotransferase 17 U/L (10-49); Albumin, Serum 4.1 gm/dL (3.5-5.0); Albumin/Globulin Ratio 1.5 (1.2-2.2); Alkaline Phosphatase 103 U/L (46-116); Anion Gap 6 (7-16); Aspartate Amino Transferase 20 U/L (0-34); BUN/Creatinine Ratio 29 Ratio (12-20); Bilirubin,Total 1.2 mg/dL (0.3-1.2); Blood Urea Nitrogen 32 mg/dL (9-23); Calcium 9.2 mg/dL (8.3-10.6); Calcium (Corrected) 9.2 mg/dL (8.5-10.1); Carbon Dioxide 26.6 mMol/L (20.0-31.0); Chloride 108 mMol/L (98-107); Creatinine (Component) 1.1 mg/dL (0.6-1.3); Estimated Creatinine Clearance 57.7 mL/min (>60); Globulin 2.7 gm/dL (2.3-3.5); Glucose 130 mg/dL (74-106); Magnesium 1.7 mg/dL (1.6-2.6); Osmolality,Calculated 290 (275-295); Potassium 4.2 mMol/L (3.4-5.1); Sodium 141 mMol/L (136-145); Total Protein 6.8 gm/dL (5.7-8.2); eGFR > 60 See Note
[2024-12-17 06:27] LABS: Collection Type, Urine Clean Catch
--- NOTE | 2024-12-17 06:32 | PD.EDADDENDU ---
Emergency Room Addendum Addendum Narrative: 0600: Care assumed from Dr. Torrez, the previous shift emergency physician. Past medical, surgical, social and family history reviewed. Vitals and home medications reviewed. I will assume the care of the patient at this time. Please refer to the emergency department record for history and examination from initial visit.? Physical exam by me shows patient under no acute distress at this time.
--- NOTE | 2024-12-17 06:39 | EDNOTE_ITS ---
Emergency Room Addendum Addendum Narrative: 0600: Care assumed from Dr. Torrez, the previous shift emergency physician. Past medical, surgical, social and family history reviewed. Vitals and home medications reviewed. I will assume the care of the patient at this time, pending remainder of diagnostic tests and final disposition. Please refer to the emergency department record for history and examination from initial visit.? Physical exam by me shows patient under no acute distress at this time. Urine WBC is 283 with rare bacteria. Urologist is Dr. Miller Britton. I attempted to call Dr. Britton at 0825 hours but could not get through. I will advice the patient to call him today and will discharge with antibiotics. 0831: I spoke the patient about results. Patient is stable and not septic. Patient remains clinically stable throughout the emergency department visit. Re- assessment at the time of disposition demonstrates that the patient is in no acute distress. We reviewed all the results, analysis, and treatment plans. Patient is amenable to discharge. Strict return precautions were outlined. Patient was discharged in stable condition. Diagnoses: - Mild right hydronephrosis - 8 mm distal right ureteral calculus - 9 mm right ureterovesical junction calculus - Right flank pain RADIOLOGY Procedure(s): US gall bladder Accession Number(s): [id number] cc: Warren Torrez MD; Jadiel Hill MD; NO PRIMARY/FAMILY,PHYSICIAN~ Examination: Abdomen sonogram, Limited Date and time of exam: December 17, 2024 0513 hrs. Indications: Right upper abdominal pain flank pain beginning 2 days ago Technique: Real-time crandall scale transabdominal sonographic images of the upper abdomen obtained. Findings: Normal gallbladder Normal common bile duct 0.46 cm Pancreatic head 3.0 cm Liver 18.4 cm smooth contour no focal liver lesions Normal hepatopedal portal venous flow Patent IVC Impression: Normal gallbladder Mild to moderate hepatomegaly no focal liver lesions Dictated By: Jadiel Hill MD Procedure(s): CT abdomen pelvis wo [facility] Accession Number(s): [id number] cc: Warren Torrez MD; Jadiel Hill MD; NO PRIMARY/FAMILY,PHYSICIAN~ Examination: CT abdomen and pelvis without contrast. Coronal 3-D reconstructions. Sagittal 2-D reconstructions. Date and time of exam:December 17, 2024 at 0454 hrs. Indications: Right-sided flank pain beginning 6 hours ago CTDI: vol (mGy): 9.09 DLP: (mGycm): 478 Technique: Axial images of the abdomen have been obtained, 3 mm slice thickness Intravenous contrast material has not been administered. Low dose protocols were performed. One or more of the following dose reduction techniques were used; automated exposure control, adjustment of the mA and/or KV according to patient size, use of iterative reconstruction technique. Findings: No focal liver or splenic lesions No gallstones No pancreatic mass Aorta normal size Mild right hydronephrosis secondary to 8 mm distal right ureteral calculus as well as 9 mm calculus at the right ureterovesical junction Multiple right renal calculi, the largest 7 mm Severely scarred left kidney No bowel obstruction Mild urinary bladder wall thickening Impression: Mild right hydronephrosis, 8 mm distal right ureteral calculus, 9 mm right ureterovesical junction calculus Dictated By: Jadiel Hill MD
[2024-12-17 07:19] VITALS: BP 137/80; PULSE 62; RESP 18; TEMP 36.7; O2SAT 97
[2024-12-17 07:23] LABS: Bacteria,Urine Rare; Bilirubin,Urine Negative (Negative); Blood,Urine 2+ (Negative); Budding Yeast,Urine Present; Clarity,Urine Turbid (Clear/Hazy); Color,Urine Lt-Yellow (Lt Yel-Yel); Glucose, Urine Negative (Negative); Ketones,Urine Negative (Negative); Leukocyte Esterase,Urine Positive (Negative); Nitrite,Urine Negative (Negative); Protein,Urine 1+ (Neg - Trace); RBC,Urine 34 /hpf (0-3); Specific Gravity,Urine 1.019 (1.001-1.035); Squamous Epithelial Cell,Urine 1 /hpf (0-5); Urobilinogen,Urine Negative mg/dL (0.0-1.0); WBC,Urine 283 /hpf (0-5)
[2024-12-17 07:28] LABS: Culture Indicated,Urine Yes
[2024-12-17] MEDS: ONDANSETRON INJ 2 MG/ML INJ 2 ML 4 MG IV (08:47)
[2024-12-17] MEDS: HYDROmorphone INJ 2 MG/ML VIAL 1 MG IVP ×2 (08:48→11:37)
[2024-12-17] MEDS: cefTRIAXone 2 GM in SODIUM CHLORIDE 0.9% (Popper) 50 ML IV (08:49)
[2024-12-17 10:47] VITALS: BP 97/60; PULSE 60; RESP 16; TEMP 36.7; O2SAT 98
[2024-12-17 12:00] VITALS: BP 123/68; PULSE 62; RESP 18; TEMP 36.5; O2SAT 96
== END 2024-12-17 12:11 | disposition home or self-care (01) ==
PROVIDERS: Emergency Provider Emergency Medicine
DX: N13.2 Hydronephrosis with renal and ureteral calculous obstruction (principal); E78.00 Pure hypercholesterolemia, unspecified; I10 Essential (primary) hypertension
CPT/HCPCS: 36415; 74176; 76705; 80053; 81001; 83690; 83735; 85025; 87086; 96365; 96372; 99284; J0696; J1885; J2405; J3490; J7050; Q0162; A9270

== ENCOUNTER 2025-01-08 08:50 | Day surgery (SDC) | payer BC, OTHER, SELFPAY ==
[2025-01-03 08:16] VITALS: BMI 31.1
[2025-01-03 08:53] LABS: Collection Type, Urine Clean Catch
[2025-01-03 09:08] LABS: Basophils % (Auto) 0 % (0-2.5); Eosinophils # (Auto) 0.4 Thou/mm3 (0.0-0.5); Eosinophils % (Auto) 5 % (0-10); Hematocrit 38.1 % (36.0-46.0); Hemoglobin 12.9 g/dL (12.0-16.0); Immature Granulocytes % (Auto) 1 % (0-0); Immature Granulocytes Auto 0.04 Thou/mm3 (0.00-0.00); Lymphocytes # (Auto) 2.3 Thou/mm3 (1.0-4.8); Lymphocytes % (Auto) 27 % (10-50); Mean Corpuscular HGB Conc 33.9 g/dl (31.0-37.0); Mean Corpuscular Hemoglobin 30.1 pg (25.0-35.0); Mean Corpuscular Volume 89 fL (80-100); Monocytes # (Auto) 0.6 Thou/mm3 (0.0-0.8); Monocytes % (Auto) 7 % (0-12); Neutrophils # (Auto) 5.1 Thou/mm3 (1.8-7.7); Neutrophils % (Auto) 61 % (37-80); Nucleated Red Blood Cell % 0 /100 WBC (0); Platelet Count 330 Thou/mm3 (140-440); RDW Standard Deviation 45.2 fL (36.4-46.3); Red Blood Count 4.28 Miln/mm3 (4.00-5.20); White Blood Count 8.4 Thou/mm3 (3.6-11.0)
[2025-01-03 09:15] LABS: Bilirubin,Urine Negative (Negative); Blood,Urine 2+ (Negative); Budding Yeast,Urine Present; Clarity,Urine Turbid (Clear/Hazy); Color,Urine Yellow (Lt Yel-Yel); Glucose, Urine Negative (Negative); Ketones,Urine Negative (Negative); Leukocyte Esterase,Urine Positive (Negative); Nitrite,Urine Negative (Negative); Protein,Urine Negative (Neg - Trace); RBC,Urine 114 /hpf (0-3); Specific Gravity,Urine 1.022 (1.001-1.035); Squamous Epithelial Cell,Urine 13 /hpf (0-5); Urobilinogen,Urine Negative mg/dL (0.0-1.0); WBC,Urine 63 /hpf (0-5)
[2025-01-03 09:31] LABS: Alanine Aminotransferase 18 U/L (10-49); Albumin, Serum 4.8 gm/dL (3.5-5.0); Albumin/Globulin Ratio 1.7 (1.2-2.2); Alkaline Phosphatase 105 U/L (46-116); Anion Gap 7 (7-16); Aspartate Amino Transferase 16 U/L (0-34); BUN/Creatinine Ratio 21 Ratio (12-20); Bilirubin,Total 1.3 mg/dL (0.3-1.2); Blood Urea Nitrogen 21 mg/dL (9-23); Calcium 9.4 mg/dL (8.3-10.6); Calcium (Corrected) 9.4 mg/dL (8.5-10.1); Carbon Dioxide 27.6 mMol/L (20.0-31.0); Chloride 106 mMol/L (98-107); Estimated Creatinine Clearance 62.6 mL/min (>60); Globulin 2.8 gm/dL (2.3-3.5); Glucose 109 mg/dL (74-106); Osmolality,Calculated 285 (275-295); Sodium 141 mMol/L (136-145); Total Protein 7.6 gm/dL (5.7-8.2); eGFR > 60 See Note
--- NOTE | 2025-01-03 13:10 | ESHP_ITS ---
RE: CEZAR ROJAS : 1970 DATE OF ADMISSION: 01/03/2025 HISTORY OF PRESENT ILLNESS: Cezar Rojas is a 54-year-old female. She has a history of right-sided kidney stones. She had an ESWL done. She passed several stones. Stent was placed in [place]. The stent was removed. The patient again had another attacks of kidney stones. She went to the emergency room. She had an 8 mm right distal ureteral stone and 9 mm right ureterovesical junction stone. The patient is now scheduled to have right cystoscopy, right ureteral stent insertion, and ESWL for right ureteral stones. Planned procedures, risks, and complications have been discussed with the patient. The patient has understood them and agreed to proceed. PAST SURGICAL HISTORY: Included kidney stone surgery with ESWL done. She has a cyst behind her pancreas, which was operated in [place]. She had an abdominoplasty. PAST MEDICAL HISTORY: She has no history of diabetes mellitus. She has a history of hypertension. HOME MEDICATIONS: She takes; 1. Lisinopril. 2. Hydrochlorothiazide. 3. Statin medication. ALLERGIES: NONE KNOWN. SOCIAL HISTORY: She has 4 children. PHYSICAL EXAMINATION: HEENT: Normal. NECK: Supple. LUNGS: Clear. CARDIOVASCULAR: Heart sounds are normal. ABDOMEN: Soft without any organomegaly. No guarding. No rigidity. EXTREMITIES: Normal. IMPRESSION: Right ureteral stone. PLAN: Cystoscopy, right ureteral stent insertion, and ESWL for right ureteral stones. Planned procedure, risks, and complications have been discussed with the patient. The patient has understood them and agreed to proceed. DT: 12:12:43 TT: 13:09:00 Ref: [id number] - TID: [id number]
[2025-01-08] VITALS (9 sets, daily range): BP systolic 116–136; BP diastolic 72–83; PULSE 60–79; RESP 12–19; TEMP 36.6–36.8; O2SAT 98–100; BMI 30.9
--- NOTE | 2025-01-08 06:00 | XR_ITS ---
Examination: Abdomen AP single view Technique: AP portable supine abdomen, single view Exam date and time: 04/10/2025 1027 hours INDICATIONS: History flank pain kidney stones FINDINGS: Subtle calcifications in the mid and lower pole right kidney No ureteral calculi Nonobstructive bowel gas pattern IMPRESSION: Subtle calcifications in the mid and lower pole right kidney
--- NOTE | 2025-01-08 12:29 | SUR.PHASEI ---
1153: Pt received in [facility] via [facility]. Report from Gee BOURNE and Leo ALDRIDGE. Pt groggy. Easily aroused. Resp even, unlabored. VS stable. No c/o pain. 1220: Pt resting with no complaints voiced. Resp even, unlabored. VS stable. Denies pain.
--- NOTE | 2025-01-08 12:46 | SUR.PHASEII ---
1230: Pt more awake, alert. VS stable. Denies pain. Sitting up tolerating po fluids with no difficulty swallowing and no n/v.
--- NOTE | 2025-01-08 13:41 | SUR.PHASEII ---
1314: Pt fully awake, oriented x3. VS stable. Denies pain, nausea. Pt and sister stated understanding of discharge instructions. 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 Pt discharged from [facility] in stable condition.
--- NOTE | 2025-01-08 18:26 | ESOP_ITS ---
RE: CEZAR PINON : 1970 DATE OF OPERATION: 01/08/2025 PREOPERATIVE DIAGNOSES: Right renal calculi with history of right ureteral stones. POSTOPERATIVE DIAGNOSES: Right renal calculi with history of right ureteral stones. PROCEDURES PERFORMED: Cystoscopy, right retrograde pyelogram, insertion of the right ureteral stent, and ESWL for the right lower pole renal calculus. ANESTHESIA: General by Dr. Roland. INDICATION: The patient is a 54-year-old female with history of radiolucent stones. The patient had stones. She had a lithotripsy done in the past. She had a stent placed in [place], which was removed. The patient again had pain and she went to the emergency room. CT scan of the abdomen and pelvis revealed right distal ureteral calculi. The patient is now scheduled to have cystoscopy, right ureteral stent insertion, and ESWL for the renal-ureteral calculi. Again, patient has radiopaque calculi in the past. DESCRIPTION OF PROCEDURE: After the patient was brought to the operating table and under adequate general anesthesia given by Dr. Roland, she was placed in dorsal lithotomy position. Parts were prepped and draped in the usual fashion. Cystoscopy was carried out, which revealed adequate urethral meatus and normal-appearing urethra. Residual urine was 2 ounces, yellow and clear. There are no intravesical stones or tumors. Ureteral orifices are found to be normal in position and appearance. Open-tip ureteral catheter was introduced into the right ureteral orifice and was advanced a little bit and right retrograde pyelogram was obtained. The right ureter appears to be open, but there is moderate hydronephrosis. The ureteral catheter was advanced all the way up to the kidney and there was no obstruction to the passage of the ureteral catheter. The patient does have stone in the lower pole of the right kidney, which was seen on this x-ray today, but there was no obstruction seen in the way of the ureter when I passed the ureteral catheter and the stent up towards the kidney. After the ureteral catheter, a guidewire was inserted and was advanced all the way up to the right kidney and 6-Anguillan x 24-cm double-J right ureteral stent was inserted over the guidewire under C-arm fluoroscopy control so as the proximal loop of the stent is lying in the right kidney and distal loop is in the bladder. The patient does have 7-mm stone in the lower pole of the right kidney, which was then treated. The patient had a lithotripsy done by [employer] Delta III lithotripsy machine. The 2500 shocks were given to the stone in the right lower pole at power level 8. The patient tolerated the entire procedure well and left the room in good condition. DT: 11:48:28 TT: 18:24:00 Ref: [id number] - TID: [id number]
== END 2025-01-08 13:14 | disposition home or self-care (01) ==
PROVIDERS: Anesthesiology; PCP Physician Assistant; Referring Provider Surgery; Visit Provider Surgery
PROC: (CPT 50590; principal; 2025-01-08 10:45)
DX: N13.2 Hydronephrosis with renal and ureteral calculous obstruction (principal); I10 Essential (primary) hypertension; Z87.442 Personal history of urinary calculi
CPT/HCPCS: 50590; 52332; 36415; 74018; 80053; 81001; 85025; 87086; A4217; C2617; J0694; J1100; J2250; J2371; J2405; J2704; J3010

== ENCOUNTER → 2025-07-24 | Outpatient (CLI) | payer BC, OTHER, SELFPAY ==
--- NOTE | 2025-07-24 11:48 | XR_ITS ---
Examination: Knee, right, 3 views Technique: Knee AP, lateral, oblique 3 views Date and time of exam: July 24, 2025, 1159 hours INDICATIONS: Knee pain 3 months FINDINGS: Moderate to advanced osteoarthritis medial patellofemoral joints No fracture No foreign body IMPRESSION: Moderate to advanced osteoarthritis medial patellofemoral joint
== END | disposition home or self-care (01) ==
PROVIDERS: PCP Physician Assistant; Referring Provider Physician Assistant; Visit Provider Physician Assistant
DX: M17.11 Unilateral primary osteoarthritis, right knee (principal)
CPT/HCPCS: 73562